=== PATIENT | female | born 1950 ===

== ENCOUNTER 2022-02-02 11:34 | Outpatient (CLI) | payer OTHER | END 2022-02-02 11:36 | disposition home or self-care (01) | LOC: MAMO-SONO 11:34 | PROVIDERS: ATTEND Obstetrics & Gynecology | DX: Z12.31 Encounter for screening mammogram for malignant neoplasm of breast (principal); N60.11 Diffuse cystic mastopathy of right breast; N60.12 Diffuse cystic mastopathy of left breast ==